=== PATIENT | female | born 2005 | race Caucasian/White ===

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

== ENCOUNTER 2024-10-26 11:40 | Outpatient (CLI) | payer OTHER, SELFPAY | END 2024-10-26 11:41 | disposition home or self-care (01) | PROVIDERS: PCP Family Medicine; Referring Provider Family Medicine; Visit Provider Family Medicine | DX: Z11.1 Encounter for screening for respiratory tuberculosis (principal) | CPT/HCPCS: 86480 ==

== ENCOUNTER 2024-11-10 02:39 | Emergency (ER) | payer OTHER, SELFPAY ==
[2024-11-10 02:42] VITALS: BP 127/88; PULSE 88; RESP 16; TEMP 36.7; O2SAT 98; BMI 22.2
--- NOTE | 2024-11-10 03:07 | ED_ITS ---
HPI - General Adult General Date Seen: 11/10/24 Chief complaint: Ear/Nose/Throat Problem Stated complaint: right ear pain Time Seen by Provider: 11/10/24 03:03 History of Present Illness HPI narrative: 19 yo F with a past medical history of seasonal allergies migraine headaches, otherwise generally healthy. She presents to the ER tonight for right ear pain and muffled hearing. Pain began tonight at about 10:30 p.m.. She does work as a classroom instructor. She has been sick for couple of weeks with nasal congestion and what she thought was a sinus infection. That was starting get better although for the past few days she has had a cold. Beginning this evening she started having pain in her right ear and and a deep sensation of discomfort and fullness. She has also noted that her hearing has been muffled. She is not having a fever. No sore throat. No left ear pain. No shortness of breath. Cough is not worse. The pain became so severe tonight that she could not sleep despite taking Tylenol. She came here to the ER tonight with her family. Related Data Previous Rx's ?Medication ?Instructions ?Recorded ondansetron 4 mg disintegrating 4 mg PO Q6-8H PRN naus ea and 10/19/22 tablet vomiting #10 tabs norgestimate 0.25 mg-ethinyl 1 tab PO QDAY #84 tabs estradiol 0.035 mg tablet (Sprintec (28)) rizatriptan 5 mg tablet 5 mg PO DAILY PRN for migrai ne #30 10/29/24 tabs Allergies Allergy/AdvReac Type Severity Reaction Status Date / Time No Known Drug Allergies Allergy Verified 02/09/24 09:39 [facility] Medical History (Updated 11/10/24 @ 03:59 by Kush Ying MD) Ankle pain ?M25.579 - Pain in unspecified ankle and joints of unspecified foot (ICD-10) Metrorrhagia ?N92.1 - Excessive and frequent menstruation with irregular cycle (ICD-10) Family History Mother Diabetes Social History Narrative: Student at [employer]. Plays volleyball. Nonsmoker, no alcohol use, no illicit drug use Smoking Status: Never smoker Exam Narrative: Exam Narrative: Constitutional: Appears well-developed and well-nourished. Alert. Conversant. Non toxic. HENT: Head: Atraumatic. Left ear: Mastoid, pinna, canal, are normal. Her tympanic membrane is pink and there is some fluid behind it but is not erythematous and bulging. Right ear: Mastoid and pinnae are normal. Canal is occluded by dark brown cerumen. Not able to see the TM. Using a combination of lighted ear curette and warm water irrigation I was able to remove a fairly large amount of cerumen from the patient's ear canal. With this we uncovered fairly erythematous and angry looking skin of the canal which looks like an otitis externa. No foreign body. Removing the cerumen was uncomfortable for the patient despite my gentle efforts. We are a not able to remove all of the cerumen but I was able to remove enough of the cerumen to see the bottom 1/4 of her TM which appears to be slightly pink but not really erythematous or angry. Nose: Nose normal. Mouth/Throat: Oral mucosa is clear and moist. no trismus. Pharynx normal. Tonsils symmetric. No tonsillar enlargement, erythema, or exudate. Eyes: Conjunctivae normal. EOM normal. Pupils equal, round, and reactive to light. No scleral icterus. Neck: Normal range of motion. Neck supple. No tracheal deviation present. Cardiovascular: Normal rate, regular rhythm. No gallop. No friction rub. No murmur heard. Symmetric radial artery pulses Pulmonary/Chest: Effort normal. No stridor. No respiratory distress. No wheezes. No rales. No rhonchi Musculoskeletal: RUE: Normal range of motion. No tenderness. No deformity LUE: Normal range of motion. No tenderness. No deformity RLE: Normal range of motion. No edema. No tenderness. No deformity LLE: Normal range of motion. No edema. No tenderness. No deformity Neurological: Alert and oriented to person, place, and time. Normal strength. CN II-VII intact. No sensory deficit. GCS eye subscore is 4. GCS verbal subscore is 5. GCS motor subscore is 6. Normal coordination Skin: Skin is warm and dry. No rash noted. No pallor. Normal capillary refill. Psychiatric: Normal mood. Normal affect. Const: Vital Signs, click to edit/add: Vital Signs - 24 hr 11/10/24 02:42 Temperature 98.1 F Pulse Rate [Left P ulse Oximeter] 88 Respiratory Rate 16 Blood Pressure [Ri ght Upper Arm] 127/88 Pulse Oximetry 98 Oxygen Delivery Me thod Room Air Course Vital Signs Vital signs: Initial Vital Signs Temperature 98.1 F 11/10/24 02:42 Temperature Source Temporal Artery Scan 11/10/24 02:42 Pulse Rate 88 11/10/24 02:42 Pulse Rhythm Regular 11/10/24 02:42 Respiratory Rate 16 11/10/24 02:42 Blood Pressure 127/88 11/10/24 02:42 Blood Pressure Mean 101 11/10/24 02:42 Blood Pressure Position Sitting 11/10/24 02:42 Pulse Oximetry 98 11/10/24 02:42 Oxygen Delivery Method Room Air 11/10/24 02:42 Vital Signs Temperature 98.1 F 11/10/24 02:42 Pulse Rate 88 11/10/24 02:42 Respiratory Rate 16 11/10/24 02:42 Blood Pressure 127/88 11/10/24 02:42 Pulse Oximetry 98 11/10/24 02:42 Oxygen Delivery Method Room Air 11/10/24 02:42 Temperature 98.1 F 11/10/24 02:42 Pulse Rate 88 11/10/24 02:42 Respiratory Rate 16 11/10/24 02:42 Blood Pressure 127/88 11/10/24 02:42 Pulse Oximetry 98 11/10/24 02:42 Oxygen Delivery Method Room Air 11/10/24 02:42 Medications Administered Medications: Discontinued Medications Generic Name Dose Route Start Last Admin Trade Name Freq PRN Reason Stop Dose Admin Ibuprofen 600 mg 11/10/24 03:19 11/10/24 03:35 Ibuprofen 600 Mg Tablet PO 11/10/24 03:20 600 mg ONCE ONE Administration Medical Decision Making MDM Narrative Medical decision making narrative: This patient presents for evaluation of right otalgia. The patient has an exam consistent with otitis externa. Differential considered in this patient with otalgia included otitis media, mastoiditis, meningitis, perforation, cerumen impaction, mass, dental abscess, or peritonsillar abscess, referred pain, cholesteatoma, otitis externa, etc. she also had fairly significant cerumen impaction which we attempted to remove for exam here. We were not able to move all of her ear wax but I was able to remove just enough to see the bottom small part of her TM which looks pink but not angry. Instymeds prescription for [place] to use for pain because her pain so far is not controlled with Tylenol ibuprofen. I expect that as things get better she will be able to rely more on Tylenol or Ibuprofen for pain. Opiate precautions reviewed. Topical antibiotic drops for the externa are noted below. Instymeds Cortisporin otic. Return if increasing pain, fever, decrease in hearing or ear discharge. Follow-up with primary physician in 3-5 days, if symptoms persist and ENT consultation may be needed as outpatient. Discharge Plan Discharge Clinical Impression: Otitis externa, Cerumen impaction Patient Disposition: Home, Self-Care Condition: Stable Instructions: Carbamide Peroxide (Into the ear) (Cold Storage Supervisor's Choice, Debrox,..., Swimmer's Ear (ED) Additional Instructions: As we discussed, use the Cortisporin ear drops (4 drops into your right ear 4 times daily for 7 days) to help treat the ear infection. After the infection is better, you can get some earwax drops to help remove the residual wax from her right ear. If you do not get better within the next 2-3 days, please recheck with your doctor or with the [facility]. To schedule an appointment with ENT you can call [phone]. If you have worsening symptoms such as worsening pain, severe headache, fever, bleeding from your ear, or any other problems, please come back to the ER right away. Use caution with prescription pain killers like [place] because they can cause dizziness, drowsiness, constipation, and can be addictive. Prescriptions: No Action ondansetron 4 mg tablet,disintegrating 4 mg PO Q6-8H PRN (Reason: nausea and vomiting) Qty: 10 5RF Rx Instructions: Take 1 tablet every 6-8 hours as needed for nausea/vomiting. norgestimate-ethinyl estradiol [Sprintec (28)] 0.25-35 mg-mcg tablet 1 tab PO QDAY Qty: 84 3RF rizatriptan 5 mg tablet 5 mg PO DAILY PRN (Reason: for migraine) Qty: 30 0RF Follow Up/Referrals: Slava Garza MD [Primary Care Provider, Family Practice] Stand Alone Forms: FaceR[employer] Info Instructions
[2024-11-10] MEDS: IBUPROFEN 600 MG TABLET PO (03:35)
== END 2024-11-10 04:13 | disposition home or self-care (01) ==
LOC: ED 04:04
PROVIDERS: Emergency Provider Emergency Medicine; PCP Family Medicine
DX: H60.91 Unspecified otitis externa, right ear (principal); H61.21 Impacted cerumen, right ear
CPT/HCPCS: 99282; 99283; A9270